=== PATIENT | female | born 1955 | race Caucasian/White ===

== ENCOUNTER 2020-12-30 13:46 | Emergency (ER) | payer MEDICARE, OTHER ==
[~2020-12-30 13:46] MED LIST: ALLERGY RELIEF10 M1 PO; BACLOFEN 10MG T10 MG PO; CALCIUM 600 +1 EAC7 PO; CERTAGEN1 EACH PO; COLACE100 MG PO; CORGARD20 MG PO; COZAAR 25MG TAB25 MG PO; HYDROCHLOROTHIA50 MG PO; HYDROCODONE-APA1 TAB PO; MEDROL 4MG DOSEP4 MG PO; METFORMIN HCL500 MG PO; MOBIC7.5 MG PO; PROTONIX 40MG T40 MG PO; REQUIP0.25 MG PO; ROBAXIN750 MG PO; TRADJENTA5 MG PO
[2020-12-30 15:30] LABS: BASOPHIL 0.8 % (0-2); EOSINOPHIL 3.5 % (0-7); HCT 40.7 % (37.0-47.0); HGB 13.7 g/dl (12.5-16.0); LYMPHOCYTE 35.5 % (15-48); MCH 30.4 pg (25.0-31.0); MCHC 33.7 g/dL (32.0-36.0); MCV 90.4 fL (78.0-100.0); MONOCYTE 13.7 % (0-12); NEUTROPHIL 46.5 % (41-80); NRBC 0; RDW 13.5 % (11.5-14.0); WBC 2.6 K/uL (4.0-10.5)
[2020-12-30 15:54] LABS: PLT 51 K/uL (150-400)
[2020-12-30 16:07] LABS: BUN/CREAT RATIO (CALC) 24.2 RATIO; CREATININE 1.32 mg/dL (0.51-0.95); POTASSIUM 5.1 mmol/L (3.5-5.1)
[2020-12-30 17:13] LABS: CORONAVIRUS 2019 SARS-COV-2 NEGATIVE (NEGATIVE); INFLUENZA A NAA NEGATIVE (NEGATIVE)
== END 2020-12-30 18:33 | disposition home or self-care (01) ==
LOC: FER 13:46
PROVIDERS: Nurse Practitioner Family
DX: M25.552 Pain in left hip (principal); M79.605 Pain in left leg; G89.29 Other chronic pain; R60.0 Localized edema; E11.9 Type 2 diabetes mellitus without complications; I10 Essential (primary) hypertension; K21.9 Gastro-esophageal reflux disease without esophagitis; Z87.19 Personal history of other diseases of the digestive system; Z79.899 Other long term (current) drug therapy; Z20.822 Contact with and (suspected) exposure to COVID-19
CPT/HCPCS: 36415; 73502; 80048; 85025; U0002

== ENCOUNTER 2021-01-30 11:35 | Emergency (ER) | payer MEDICARE, OTHER ==
[2021-01-30 13:50] LABS: BASOPHIL 0.5 % (0-2); EOSINOPHIL 1.9 % (0-7); HCT 41.6 % (37.0-47.0); HGB 14.1 g/dl (12.5-16.0); LYMPHOCYTE 20.6 % (15-48); MCH 30.9 pg (25.0-31.0); MCHC 33.9 g/dL (32.0-36.0); MONOCYTE 8.6 % (0-12); MPV 11.2 fL (6.0-9.5); NEUTROPHIL 68.2 % (41-80); NRBC 0; RBC 4.57 M/uL (4.20-5.40); RDW 14.6 % (11.5-14.0); WBC 4.3 K/uL (4.0-10.5)
[2021-01-30 14:11] LABS: BILIRUBIN 1+ mg/dL (NEGATIVE); BLOOD NEGATIVE Ery/uL (NEGATIVE); CLARITY CLEAR (CLEAR); COLOR YELLOW (YELLOW); GLUCOSE (U) TRACE mg/dL (NORMAL); LEUKOCYTES NEGATIVE Leu/uL (NEGATIVE); NITRITE NEGATIVE (NEGATIVE); PROTEIN NEGATIVE (NEGATIVE); pH 6.5 (5.0-9.0)
[2021-01-30 14:17] LABS: PLT 47 K/uL (150-400)
[2021-01-30 14:19] LABS: URINARY WBC RARE
[2021-01-30] MEDS ORDERED: BACLOFEN5 MG PO (15:55)
[2021-01-30] MEDS ORDERED: MEDROL 4MG DOSEP4 MG PO (15:55)
== END 2021-01-30 16:28 | disposition home or self-care (01) ==
LOC: FER 11:35
PROVIDERS: Emergency Medicine
DX: M48.061 Spinal stenosis, lumbar region without neurogenic claudication (principal); I10 Essential (primary) hypertension; Z87.19 Personal history of other diseases of the digestive system
CPT/HCPCS: 36415; 72131; 81001; 85025; J1170; J2405

== ENCOUNTER 2021-02-10 13:27 | Day surgery (SDCO) | payer MEDICARE, OTHER ==
[~2021-02-10] VITALS: Ht 157.5 cm; Wt 85.0 kg
[~2021-02-10 13:27] MED LIST changes: +BACLOFEN5 MG PO
[2021-02-10 14:27] LABS: BASOPHIL 0.3 % (0-2); EOSINOPHIL 1.8 % (0-7); HGB 16.3 g/dl (12.5-16.0); MCH 31.2 pg (25.0-31.0); MCV 91.8 fL (78.0-100.0); MONOCYTE 8.7 % (0-12); NEUTROPHIL 69.7 % (41-80); NRBC 0; RBC 5.23 M/uL (4.20-5.40); RDW 16.3 % (11.5-14.0); WBC 7.9 K/uL (4.0-10.5)
[2021-02-10 14:32] LABS: PLT 58 K/uL (150-400)
[2021-02-10 14:38] LABS: ALBUMIN 3.6 g/dL (3.4-5.0); BILIRUBIN - TOTAL 2.1 mg/dL (0.2-1.0); BUN/CREAT RATIO (CALC) 15.9 RATIO; CREATININE 3.84 mg/dL (0.51-0.95); GLOBULIN (CALCULATION) 3.3 g/dL; POTASSIUM 4.7 mmol/L (3.5-5.1); TOTAL PROTEIN 6.9 g/dL (6.4-8.2)
[2021-02-10 15:43] LABS: INR 1.19 (0.9-1.2); PROTHROMBIN TIME 14.3 SECONDS (11.4-13.6)
[2021-02-10 16:38] LABS: CORONAVIRUS 2019 SARS-COV-2 NEGATIVE (NEGATIVE); INFLUENZA A NAA NEGATIVE (NEGATIVE)
[2021-02-10] MEDS ORDERED: LASIX40 MG PO (18:01)
[2021-02-10] MEDS ORDERED: CLARITIN10 MG PO (18:01)
[2021-02-10] MEDS ORDERED: COZAAR50 MG PO (18:01)
[2021-02-10] MEDS ORDERED: MICRO-K10 MEQ PO (18:05)
[2021-02-10] MEDS ORDERED: CALCIUM 600 +1 EAC3 PO (18:06)
[2021-02-10] MEDS ORDERED: PROTONIX 40MG T40 MG PO (18:07)
[2021-02-10] MEDS ORDERED: ALDACTONE100 MG PO (18:07)
[2021-02-10] MEDS ORDERED: ANTACID CALCIU215 MG PO (18:08)
[2021-02-10] MEDS ORDERED: COLACE100 MG PO (18:09)
[2021-02-10] MEDS ORDERED: REQUIP1 MG PO (18:10)
[2021-02-10] MEDS ORDERED: FLONASE ALLER15.8 ML (18:10)
[2021-02-10] MEDS ORDERED: XIFAXAN550 MG PO (18:12)
[2021-02-10] MEDS ORDERED: SENNA S TABLET1 EACH PO (18:12)
[2021-02-10] MEDS ORDERED: D3-501250 MCG PO (18:13)
[2021-02-10] MEDS ORDERED: HYDROCODON-ACE1 EAC2 PO (18:21)
[2021-02-11 06:51] LABS: BUN/CREAT RATIO (CALC) 24.4 RATIO; CREATININE 2.13 mg/dL (0.51-0.95); HCT 39.9 % (37.0-47.0); HGB 13.9 g/dl (12.5-16.0); MCH 31.2 pg (25.0-31.0); MCHC 34.8 g/dL (32.0-36.0); MCV 89.7 fL (78.0-100.0); MPV 11.9 fL (6.0-9.5); POTASSIUM 4.2 mmol/L (3.5-5.1); RBC 4.45 M/uL (4.20-5.40); RDW 15.3 % (11.5-14.0); WBC 4.3 K/uL (4.0-10.5)
--- NOTE | 2021-02-11 13:19 | NUR ---
02/11 Ms. Coulter lives alone. She attends [employer]. She receives casemanagement and in-home services. She has a caaregiver 5 days per week. Ms. Coulter has a lucian, levi, 3in1 and s. chair. A referral was made to [facility] per patient chose; affliation explained. A rePort was given to JAQUAN Reyes RN.
[2021-02-11] MEDS ORDERED: ALDACTONE50 MG PO (13:25)
[2021-02-11] MEDS ORDERED: LASIX20 MG PO (13:25)
[2021-02-11] MEDS ORDERED: NORVASC5 MG PO ×2 (13:25→13:33)
--- NOTE | 2021-02-11 15:29 | NUR ---
1500 PATIENT DISCHARGED BY WHEELCHAIR. IV DCD, MONITOR DCD, INSTRUCTIONS GIVEN TO PATIENT AND VERBALIZED UNDERSTANDING.
== END 2021-02-11 14:55 | disposition home or self-care (01) ==
LOC: FER 13:27 → FTCU 16:46
PROVIDERS: Nurse Practitioner Family; ADMIT Hospitalist
DX: I12.9 Hypertensive chronic kidney disease with stage 1 through stage 4 chronic kidney disease, or unspecified chronic kidney disease (principal); E11.22 Type 2 diabetes mellitus with diabetic chronic kidney disease; N18.30 Chronic kidney disease, stage 3 unspecified; N17.9 Acute kidney failure, unspecified; K74.60 Unspecified cirrhosis of liver; R07.81 Pleurodynia; R06.02 Shortness of breath; R79.1 Abnormal coagulation profile; Z79.84 Long term (current) use of oral hypoglycemic drugs; Z79.899 Other long term (current) drug therapy; Z20.822 Contact with and (suspected) exposure to COVID-19
CPT/HCPCS: 36415; 71045; 78580; 80048; 80053; 82140; 82962; 84484; 85025; 85379; 85610; 94010; 94640; 94760; 94762; G0378; J1650; J1720; J7030; Q9967; U0002

== ENCOUNTER 2021-09-22 10:03 | Emergency (ER) | payer MEDICARE, OTHER ==
[~2021-09-22 10:03] MED LIST changes: +ALDACTONE100 MG PO; +ALDACTONE50 MG PO; +ANTACID CALCIU215 MG PO; +CALCIUM 600 +1 EAC3 PO; +CLARITIN10 MG PO; +COZAAR50 MG PO; +D3-501250 MCG PO; +FLONASE ALLER15.8 ML; +HYDROCODON-ACE1 EAC2 PO; +LASIX20 MG PO; +LASIX40 MG PO; +MICRO-K10 MEQ PO; +NORVASC5 MG PO; +REQUIP1 MG PO; +SENNA S TABLET1 EACH PO; +XIFAXAN550 MG PO
[2021-09-22 12:09] LABS: BILIRUBIN NEGATIVE (NEGATIVE); BLOOD NEGATIVE Ery/uL (NEGATIVE); CLARITY CLEAR (CLEAR); COLOR YELLOW (YELLOW); GLUCOSE (U) 3+ mg/dL (NORMAL); LEUKOCYTES NEGATIVE Leu/uL (NEGATIVE); NITRITE NEGATIVE (NEGATIVE); PROTEIN NEGATIVE (NEGATIVE)
[2021-09-22] MEDS ORDERED: VOLTAREN ARTHRI20 GM TOP (12:47)
== END 2021-09-22 14:23 | disposition home or self-care (01) ==
LOC: FER 10:03
PROVIDERS: Emergency Medicine
DX: G89.29 Other chronic pain (principal); M54.50 Low back pain, unspecified; E11.9 Type 2 diabetes mellitus without complications; I10 Essential (primary) hypertension
CPT/HCPCS: 81003; 87088; J1170

== ENCOUNTER 2021-12-12 16:01 | Inpatient (IN) | payer OTHER, MEDICARE ==
[~2021-12-12] VITALS: Ht 162.6 cm; Wt 78.0 kg
[~2021-12-12 16:01] MED LIST changes: +VOLTAREN ARTHRI20 GM TOP
[2021-12-12 16:22] LABS: BASOPHIL 0.7 % (0-2); EOSINOPHIL 3.6 % (0-7); HCT 41.7 % (37.0-47.0); HGB 13.7 g/dl (12.5-16.0); LYMPHOCYTE 34.9 % (15-48); MCH 26.9 pg (25.0-31.0); MCHC 32.9 g/dL (32.0-36.0); MCV 81.9 fL (78.0-100.0); MONOCYTE 9.3 % (0-12); MPV 11.3 fL (6.0-9.5); NEUTROPHIL 51.1 % (41-80); NRBC 0; RBC 5.09 M/uL (4.20-5.40); WBC 2.8 K/uL (4.0-10.5)
[2021-12-12 16:23] LABS: PLT 66 K/uL (150-400)
[2021-12-12 16:47] LABS: BILIRUBIN NEGATIVE (NEGATIVE); BLOOD NEGATIVE Ery/uL (NEGATIVE); CLARITY CLEAR (CLEAR); COLOR YELLOW (YELLOW); GLUCOSE (U) NORMAL (NORMAL); LEUKOCYTES NEGATIVE Leu/uL (NEGATIVE); NITRITE NEGATIVE (NEGATIVE); PROTEIN NEGATIVE (NEGATIVE); SPECIFIC GRAVITY 1.015 (1.001-1.030); pH 7.5 (5.0-9.0)
[2021-12-12 16:51] LABS: AMPHETAMINES NEGATIVE (NEGATIVE); BARBITURATES NEGATIVE (NEGATIVE); ECSTASY (MDMA) NEGATIVE (NEGATIVE); MARIJUANA (THC) NEGATIVE (NEGATIVE); METHADONE NEGATIVE (NEGATIVE); OPIATES NEGATIVE (NEGATIVE); OXYCODONE NEGATIVE (NEGATIVE)
[2021-12-12 17:48] LABS: ALBUMIN 3.4 g/dL (3.4-5.0); BILIRUBIN - TOTAL 1.5 mg/dL (0.2-1.0); BUN/CREAT RATIO (CALC) 24.4 RATIO; CREATININE 1.31 mg/dL (0.51-0.95); GLOBULIN (CALCULATION) 3.3 g/dL; POTASSIUM 3.7 mmol/L (3.5-5.1); TOTAL PROTEIN 6.7 g/dL (6.4-8.2)
--- NOTE | 2021-12-12 22:45 | NUR ---
PATIENT ARRIVED VIA STRECHER FROM ER UNABLE TO AWNSER QUESTIONS AT THIS TIME, WITHDRAWLS TO PAIN, BED LOCKED IN LOW POSITIONS, CALL LIGHT IN REACH. BED ALERT ON.
[2021-12-13 05:29] LABS: BASOPHIL 0.6 % (0-2); EOSINOPHIL 1.4 % (0-7); HCT 41.8 % (37.0-47.0); HGB 13.7 g/dl (12.5-16.0); LYMPHOCYTE 19.1 % (15-48); MCHC 32.8 g/dL (32.0-36.0); MCV 82.3 fL (78.0-100.0); MONOCYTE 6.3 % (0-12); MPV 10.7 fL (6.0-9.5); NEUTROPHIL 72.3 % (41-80); NRBC 0; RBC 5.08 M/uL (4.20-5.40); RDW 15.1 % (11.5-14.0); WBC 3.5 K/uL (4.0-10.5)
[2021-12-13 05:33] LABS: PLT 63 K/uL (150-400)
[2021-12-13 05:51] LABS: BUN/CREAT RATIO (CALC) 27.8 RATIO; CREATININE 0.97 mg/dL (0.51-0.95); MAGNESIUM 2.2 mg/dL (1.8-2.4); POTASSIUM 3.8 mmol/L (3.5-5.1)
[2021-12-14 05:51] LABS: INR 1.46 (0.9-1.2)
[2021-12-14 05:57] LABS: EOSINOPHIL 4.6 % (0-7); HCT 36.3 % (37.0-47.0); HGB 11.9 g/dl (12.5-16.0); LYMPHOCYTE 29.8 % (15-48); MCHC 32.8 g/dL (32.0-36.0); MCV 82.5 fL (78.0-100.0); MONOCYTE 10.2 % (0-12); MPV 10.9 fL (6.0-9.5); NEUTROPHIL 54.1 % (41-80); NRBC 0; RDW 15.1 % (11.5-14.0); WBC 3.9 K/uL (4.0-10.5)
[2021-12-14 05:58] LABS: BUN/CREAT RATIO (CALC) 22.6 RATIO; CREATININE 0.84 mg/dL (0.51-0.95)
[2021-12-14 06:42] LABS: PLT 64 K/uL (150-400)
[2021-12-14] MEDS ORDERED: XIFAXAN550 MG PO (09:09)
[2021-12-14] MEDS ORDERED: LACTULOSE20 GM/30 M NG (09:09)
[2021-12-14] MEDS ORDERED: LACTULOSE20 GM/30 M PO (09:23)
--- NOTE | 2021-12-14 09:44 | NUR ---
12/14/21 Ms. Coulter lives alone. She does not have any children. She has a rollator and s. chair. Ms. Coulter goes to [employer] when she is able. She is apparently on a Waiver Program managed by [employer]. She receives caregiving 5 days per week for 5 - 6 hours. The caregiver is Ai Durbin. - [facility] is current and have been notified by [facility] of discharge. - Report given to JAQUAN Shell RN.
== END 2021-12-14 16:30 | disposition home health service (06) | DRG 441 ==
LOC: FER 16:01 → FTCU 20:00
PROVIDERS: Allergy & Immunology; Emergency Medicine; Nurse Practitioner; ADMIT Internal Medicine
DX: K72.90 Hepatic failure, unspecified without coma (principal); J96.91 Respiratory failure, unspecified with hypoxia; N17.9 Acute kidney failure, unspecified; K74.60 Unspecified cirrhosis of liver; I10 Essential (primary) hypertension; E11.9 Type 2 diabetes mellitus without complications; Z79.899 Other long term (current) drug therapy; D69.6 Thrombocytopenia, unspecified
CPT/HCPCS: 36415; 36600; 70450; 71045; 74018; 80048; 80053; 80305; 81003; 82140; 82803; 82962; 83605; 83735; 84484; 85025; 85610; 85730; 93005; J7030

== ENCOUNTER 2022-06-14 17:09 | Inpatient (IN) | payer MEDICARE, OTHER ==
[~2022-06-14] VITALS: Ht 154.9 cm; Wt 84.0 kg
[~2022-06-14 17:09] MED LIST changes: +DEMADEX20 MG PO; +FLOMAX0.4 MG PO; +KLOR-CON M 1010 MEQ PO; +LACTULOSE10 G/15 ML PO; +LACTULOSE20 GM/30 M NG; +LACTULOSE20 GM/30 M PO; +SINGULAIR10 MG PO
[2022-06-14 18:21] LABS: BASOPHIL 0.7 % (0-2); EOSINOPHIL 3.2 % (0-7); HGB 13.2 g/dl (12.5-16.0); LYMPHOCYTE 27.1 % (15-48); MCH 26.1 pg (25.0-31.0); MCV 79.2 fL (78.0-100.0); MONOCYTE 11.4 % (0-12); MPV 9.8 fL (6.0-9.5); NEUTROPHIL 57.2 % (41-80); NRBC 0; RBC 5.05 M/uL (4.20-5.40); RDW 16.9 % (11.5-14.0); WBC 2.8 K/uL (4.0-10.5)
[2022-06-14 18:26] LABS: INR 1.16 (0.9-1.2); PLT 73 K/uL (150-400); PROTHROMBIN TIME 14.5 SECONDS (11.9-13.9); PTT 32.1 SECONDS (24.9-34.6)
[2022-06-14 18:34] LABS: LACTIC ACID 1.3 mmol/L (0.4-1.9)
[2022-06-14 18:46] LABS: ALBUMIN 3.4 g/dL (3.4-5.0); ALKALINE PHOSHATASE 132 U/L (46-116); ALT 32 U/L (14-59); AST 31 U/L (15-37); BILIRUBIN - TOTAL 1.3 mg/dL (0.2-1.0); BUN 46 mg/dL (7-18); BUN/CREAT RATIO (CALC) 24.2 RATIO; CHLORIDE 105 mmol/L (98-107); CO2 (BICARBONATE) 22 mmol/L (21-32); GLUCOSE 125 mg/dL (74-106); POTASSIUM 4.5 mmol/L (3.5-5.1); TOTAL PROTEIN 6.4 g/dL (6.4-8.2)
[2022-06-14 20:12] LABS: BILIRUBIN NEGATIVE (NEGATIVE); BLOOD TRACE-INTACT Ery/uL (NEGATIVE); CLARITY CLEAR (CLEAR); COLOR YELLOW (YELLOW); GLUCOSE (U) NORMAL (NORMAL); LEUKOCYTES NEGATIVE Leu/uL (NEGATIVE); NITRITE NEGATIVE (NEGATIVE); PROTEIN NEGATIVE (NEGATIVE); UROBILINOGEN 0.2 mg/dL (0.2-1.0)
[2022-06-14 20:15] LABS: AMPHETAMINES NEGATIVE (NEGATIVE); BARBITURATES NEGATIVE (NEGATIVE); ECSTASY (MDMA) NEGATIVE (NEGATIVE); MARIJUANA (THC) NEGATIVE (NEGATIVE); METHADONE NEGATIVE (NEGATIVE); OPIATES POSITIVE (NEGATIVE); OXYCODONE NEGATIVE (NEGATIVE)
[2022-06-14 20:19] LABS: URINARY WBC RARE
[2022-06-14 20:40] LABS: CORONAVIRUS 2019 SARS-COV-2 NEGATIVE (NEGATIVE); INFLUENZA A NAA NEGATIVE (NEGATIVE)
[2022-06-15 06:57] LABS: HCT 38.6 % (37.0-47.0); HGB 12.4 g/dl (12.5-16.0); MCH 26.1 pg (25.0-31.0); MCHC 32.1 g/dL (32.0-36.0); MCV 81.1 fL (78.0-100.0); MPV 10.2 fL (6.0-9.5); RBC 4.76 M/uL (4.20-5.40); RDW 16.7 % (11.5-14.0); WBC 4.1 K/uL (4.0-10.5)
[2022-06-15 07:07] LABS: BUN/CREAT RATIO (CALC) 26.1 RATIO; CREATININE 1.38 mg/dL (0.51-0.95); POTASSIUM 4.1 mmol/L (3.5-5.1)
[2022-06-16 06:11] LABS: BASOPHIL 0.7 % (0-2); EOSINOPHIL 5.9 % (0-7); HCT 35.5 % (37.0-47.0); HGB 11.8 g/dl (12.5-16.0); LYMPHOCYTE 29.4 % (15-48); MCH 26.4 pg (25.0-31.0); MCHC 33.2 g/dL (32.0-36.0); MCV 79.4 fL (78.0-100.0); MPV 11.1 fL (6.0-9.5); NEUTROPHIL 51.8 % (41-80); NRBC 0; PLT 69 K/uL (150-400); RBC 4.47 M/uL (4.20-5.40); RDW 16.8 % (11.5-14.0); WBC 4.4 K/uL (4.0-10.5)
[2022-06-16 06:18] LABS: BUN/CREAT RATIO (CALC) 20.7 RATIO; CREATININE 1.35 mg/dL (0.51-0.95); POTASSIUM 3.9 mmol/L (3.5-5.1)
--- NOTE | 2022-06-16 08:23 | NUR ---
PER PT SISTER SHE WANTS HOME HEALTH CALLED ON PHONE DID A VERBAL ORDER FOR CONSENT FOR [facility] EXPLAINED; PT HAS ROLLING WALKER AT HOME AND W/C AND POTTY CHAIR; I DID EMAIL SP[facility] WITH [facility] PLEASE CALL HER AT [phone] WHEN PT IS D/C TO HOME;
[2022-06-16] MEDS ORDERED: LACTULOSE20 GM/30 M PO (09:33)
== END 2022-06-16 11:05 | disposition home or self-care (01) | DRG 432 ==
LOC: FER 17:09 → FTCU 21:03
PROVIDERS: Emergency Medicine; Internal Medicine; Nurse Practitioner Acute Care; ADMIT Internal Medicine
DX: K74.60 Unspecified cirrhosis of liver (principal); K72.00 Acute and subacute hepatic failure without coma; K76.6 Portal hypertension; N17.9 Acute kidney failure, unspecified; I10 Essential (primary) hypertension; Z20.822 Contact with and (suspected) exposure to COVID-19; E11.9 Type 2 diabetes mellitus without complications; D64.9 Anemia, unspecified; K29.50 Unspecified chronic gastritis without bleeding; E55.9 Vitamin D deficiency, unspecified; D72.819 Decreased white blood cell count, unspecified; D69.6 Thrombocytopenia, unspecified; Z98.890 Other specified postprocedural states; Z80.8 Family history of malignant neoplasm of other organs or systems; Z79.899 Other long term (current) drug therapy
CPT/HCPCS: 36415; 36600; 70450; 71250; 74018; 80048; 80053; 80305; 81001; 82140; 82803; 82962; 83036; 83605; 84439; 84443; 84484; 85025; 85610; 85730; 87040; 93005; 94010; 94760; 97166; 97535; C9113; G0480; J7030; U0002